=== PATIENT | male | born 1950 | race Caucasian/White ===

== ENCOUNTER 2023-01-27 11:19 | Inpatient (IN) | payer MEDICARE, OTHER ==
[~2023-01-27] VITALS: Ht 177.8 cm; Wt 59.0 kg
[2023-01-27] MEDS ORDERED: HYDROCODONE/APAP 5MG-325MG TAB PO ONE (11:45)
[2023-01-27] MEDS: Morphine 4mg INJECTION 4 MG/ML INJ IV PRN ×3 (15:15→23:51)
[2023-01-27] MEDS: ONDANSETRON HCL INJ 2MG/ML 2ML 2 MG/ML VIAL IV PRN ×2 (15:16→23:51)
[2023-01-27 15:29] LABS: BASOPHILS # (AUTO) 0.1 (0.0-0.1); BASOPHILS % 0.5 % (0.0-1.0); EOSINOPHILS # (AUTO) 0.1 (0.0-0.4); EOSINOPHILS % 0.6 % (0.0-6.0); LYMPHOCYTES # (AUTO) 1.4 (1.0-3.2); LYMPHOCYTES % 9.1 % (18.0-39.1); MEAN CORPUSCULAR HEMOGLOBIN 28.8 pg (28-32); MEAN CORPUSCULAR HGB CONC 32.6 g/dL (31-35); MEAN CORPUSCULAR VOLUME 88.3 fL (81-99); MONOCYTES # (AUTO) 0.9 (0.2-0.8); MONOCYTES % 5.6 % (4.4-11.3); NEUTROPHILS # (AUTO) 13.2 (2.1-6.9); NEUTROPHILS % 83.8 % (38.7-80.0); PLATELET COUNT 253 x10e3/uL (140-360); RED BLOOD COUNT 5.21 x10e6/uL (4.3-5.7); RED CELL DISTRIBUTION WIDTH 13.4 % (11.7-14.4)
[2023-01-27 15:44] LABS: ALBUMIN 4.2 g/dL (3.5-5.0); ALBUMIN/GLOBULIN RATIO 1.6 (0.8-2.0); ANION GAP 15.4 mmol/L (8-16); CALCIUM 9.3 mg/dL (8.4-10.2); CREATININE, SERUM 0.91 mg/dL (0.72-1.25); POTASSIUM 4.4 mmol/L (3.5-5.1)
[2023-01-27 15:57] LABS: PROTHROMBIN TIME 13.7 seconds (11.9-14.5)
[2023-01-27 15:58] LABS: PARTIAL THROMBOPLASTIN TIME 31.9 seconds (23.8-35.5)
[2023-01-27] MEDS: SODIUM CHLORIDE 0.9% 1000ML 1,000 ML IV SCH ×2 (16:14→22:17)
[2023-01-27 19:16] VITALS: BP 127/91
[2023-01-27] MEDS ORDERED: DILTIAZEM HCL 5 MG/ML 5 ML VIAL IV ONE (19:58)
[2023-01-27 20:00] VITALS: BP 151/89
[2023-01-27] MEDS: METOPROLOL TARTRATE INJ 1 MG/ML VIAL IV PRN (20:01)
[2023-01-27 22:01] VITALS: BP 151/89
[2023-01-28] VITALS (10 sets, daily range): BP systolic 116–155; BP diastolic 73–91
[2023-01-28] MEDS: SODIUM CHLORIDE 0.9% 1000ML 1,000 ML IV SCH ×5 (04:53→23:00)
[2023-01-28] MEDS: ONDANSETRON HCL INJ 2MG/ML 2ML 2 MG/ML VIAL IV PRN (06:41)
[2023-01-28] MEDS: Morphine 4mg INJECTION 4 MG/ML INJ IV PRN (06:41)
[2023-01-28 06:52] LABS: BASOPHILS # (AUTO) 0.1 (0.0-0.1); BASOPHILS % 0.7 % (0.0-1.0); EOSINOPHILS # (AUTO) 0.3 (0.0-0.4); HEMATOCRIT 36.5 % (38.2-49.6); HEMOGLOBIN 12.6 g/dL (14.0-18.0); LYMPHOCYTES # (AUTO) 1.6 (1.0-3.2); LYMPHOCYTES % 13.8 % (18.0-39.1); MEAN CORPUSCULAR HEMOGLOBIN 31.3 pg (28-32); MEAN CORPUSCULAR HGB CONC 34.5 g/dL (31-35); MEAN CORPUSCULAR VOLUME 90.6 fL (81-99); MONOCYTES # (AUTO) 1.1 (0.2-0.8); MONOCYTES % 9.7 % (4.4-11.3); NEUTROPHILS # (AUTO) 8.1 (2.1-6.9); NEUTROPHILS % 72.4 % (38.7-80.0); PLATELET COUNT 154 x10e3/uL (140-360); RED BLOOD COUNT 4.03 x10e6/uL (4.3-5.7); RED CELL DISTRIBUTION WIDTH 14.6 % (11.7-14.4)
[2023-01-28 07:15] LABS: ALBUMIN 3.3 g/dL (3.5-5.0); ALBUMIN/GLOBULIN RATIO 1.7 (0.8-2.0); ANION GAP 11.5 mmol/L (8-16); CALCIUM 8.6 mg/dL (8.4-10.2); CREATININE, SERUM 0.84 mg/dL (0.72-1.25); POTASSIUM 3.5 mmol/L (3.5-5.1)
[2023-01-28] MEDS ORDERED: SUGAMMADEX SODIUM 200 MG/2 ML VIAL IV ONE (10:49)
[2023-01-28] MEDS ORDERED: ACETAMINOPHEN 1000 MG/100 ML 100 ML IV ONE (10:50)
[2023-01-28] MEDS ORDERED: Vancomycin IV 1,000 MG ONE (11:14)
[2023-01-28] MEDS ORDERED: SODIUM CHLORIDE 0.9% 500ML 500 ML ONE (11:14)
[2023-01-28] MEDS ORDERED: TRANEXAMIC ACID 20 ML ONE (11:14)
[2023-01-28] MEDS ORDERED: BUPIVACAINE 0.25% 30ML SDV ONE (11:27)
[2023-01-28] MEDS ORDERED: FENTANYL CITRATE/PF 100MCG/2 ML INJ ONE ×2 (11:27→11:59)
[2023-01-28] MEDS ORDERED: MIDAZOLAM HCL 2 MG/2 ML VIAL ONE (11:27)
[2023-01-28] MEDS ORDERED: SODIUM CHLORIDE 0.9% 250ML 250 ML IV ONE (12:00)
[2023-01-28] MEDS ORDERED: ROPIVACAINE 246.25 MG, EPINEPHRINE HCL 1:1000 1ML 0.5 MG, CLONIDINE HCL 0.08 MG, KETORO... IV ONE ×5 (12:00)
[2023-01-28] MEDS ORDERED: DIPHENHYDRAMINE HCL INJ 50 MG/ML VIAL IV PRN (13:00)
[2023-01-28] MEDS ORDERED: HYDROCODONE/APAP 5MG-325MG TAB PO PRN (13:00)
[2023-01-28] MEDS ORDERED: ACETAMINOPHEN 650 MG SUPP PR PRN (13:00)
[2023-01-28] MEDS ORDERED: DOCUSATE SODIUM 100 MG CAP PO PRN (13:00)
[2023-01-28] MEDS ORDERED: ONDANSETRON HCL INJ 2MG/ML 2ML 2 MG/ML VIAL IV PRN (13:00)
[2023-01-28] MEDS ORDERED: POVIDONE IODINE 0.05% 0.05 % ML PO ONE (13:48)
[2023-01-28] MEDS ORDERED: EPHEDRINE SULFATE INJ 50 MG/ML VIAL ONE (13:48)
[2023-01-28] MEDS ORDERED: LIDOCAINE HCL 2% LOCAL INJ 5 ML SDV VIAL INJ ONE (13:48)
[2023-01-28] MEDS ORDERED: PROPOFOL IV EMULSION 10 MG/ML 20 ML VIAL ONE (13:48)
[2023-01-28] MEDS ORDERED: ROCURONIUM BROMIDE 10 MG/ML 5ML VIAL IV ONE (13:48)
[2023-01-28] MEDS ORDERED: DEXAMETHASONE SOD PHOS INJ 4 MG/ML SDV ONE (13:48)
[2023-01-28] MEDS ORDERED: SEVOFLURANE INHAL SOLN 250 ML PEN BTL ONE (13:48)
[2023-01-28] MEDS ORDERED: ONDANSETRON HCL INJ 2MG/ML 2ML 2 MG/ML VIAL ONE (13:48)
[2023-01-28] MEDS: ASPIRIN 325 MG TAB PO SCH (17:19)
[2023-01-28] MEDS: CELECOXIB 200 MG CAP PO SCH (17:19)
[2023-01-28] MEDS: ZOLPIDEM TARTRATE 5 MG TAB PO PRN (22:26)
[2023-01-28] MEDS: HYDROCODONE/APAP 7.5MG-325MG 1 EA TAB PO PRN (22:26)
[2023-01-28] MEDS: METOPROLOL TARTRATE INJ 1 MG/ML VIAL IV PRN (22:40)
[2023-01-29] VITALS (8 sets, daily range): BP systolic 104–169; BP diastolic 63–96
[2023-01-29] MEDS: SODIUM CHLORIDE 0.9% 1000ML 1,000 ML IV SCH ×3 (04:42→19:00)
[2023-01-29 07:21] LABS: HEMATOCRIT 33.5 % (38.2-49.6); HEMOGLOBIN 10.8 g/dL (14.0-18.0)
[2023-01-29] MEDS: ASPIRIN 325 MG TAB PO SCH ×2 (08:45→17:18)
[2023-01-29] MEDS: CELECOXIB 200 MG CAP PO SCH ×2 (08:45→17:18)
[2023-01-29] MEDS ORDERED: ACETAMINOPHEN 1000 MG/100 ML IV PRN (13:00)
[2023-01-29] MEDS: METOPROLOL TARTRATE 25 MG TAB PO SCH (17:18)
[2023-01-29] MEDS: HYDROCODONE/APAP 7.5MG-325MG 1 EA TAB PO PRN (22:15)
[2023-01-29] MEDS: ZOLPIDEM TARTRATE 5 MG TAB PO PRN (22:15)
[2023-01-29] MEDS ORDERED: MAGNESIUM/ALUMINUM/SIMETHICONE 30 ML UDC PO PRN (22:15)
[2023-01-29] MEDS ORDERED: FAMOTIDINE 20 MG TAB PO ONE (22:15)
[2023-01-30] VITALS (8 sets, daily range): BP systolic 122–148; BP diastolic 66–78
[2023-01-30] MEDS: SODIUM CHLORIDE 0.9% 1000ML 1,000 ML IV SCH ×2 (04:06→15:00)
[2023-01-30] MEDS: CELECOXIB 200 MG CAP PO SCH ×2 (08:00→17:25)
[2023-01-30] MEDS: FAMOTIDINE 20 MG TAB PO SCH ×2 (08:01→17:34)
[2023-01-30] MEDS: METOPROLOL TARTRATE 25 MG TAB PO SCH ×2 (08:01→17:25)
[2023-01-30] MEDS: ASPIRIN 325 MG TAB PO SCH ×2 (08:01→17:25)
[2023-01-30 09:04] LABS: BASOPHILS # (AUTO) 0.1 (0.0-0.1); BASOPHILS % 0.6 % (0.0-1.0); EOSINOPHILS % 9.2 % (0.0-6.0); HEMATOCRIT 37.2 % (38.2-49.6); HEMOGLOBIN 12.1 g/dL (14.0-18.0); LYMPHOCYTES # (AUTO) 1.3 (1.0-3.2); MEAN CORPUSCULAR HEMOGLOBIN 28.7 pg (28-32); MEAN CORPUSCULAR HGB CONC 32.5 g/dL (31-35); MEAN CORPUSCULAR VOLUME 88.4 fL (81-99); MONOCYTES # (AUTO) 0.6 (0.2-0.8); MONOCYTES % 5.4 % (4.4-11.3); NEUTROPHILS # (AUTO) 7.3 (2.1-6.9); NEUTROPHILS % 71.4 % (38.7-80.0); PLATELET COUNT 175 x10e3/uL (140-360); RED BLOOD COUNT 4.21 x10e6/uL (4.3-5.7); RED CELL DISTRIBUTION WIDTH 13.8 % (11.7-14.4)
[2023-01-30 09:20] LABS: ANION GAP 12.7 mmol/L (8-16); CALCIUM 8.6 mg/dL (8.4-10.2); CREATININE, SERUM 0.78 mg/dL (0.72-1.25); POTASSIUM 3.7 mmol/L (3.5-5.1)
[2023-01-30] MEDS: APIXABAN 5 MG TABLET PO SCH (17:26)
[2023-01-30] MEDS: HYDROCODONE/APAP 7.5MG-325MG 1 EA TAB PO PRN (22:42)
[2023-01-30] MEDS: ZOLPIDEM TARTRATE 5 MG TAB PO PRN (22:42)
[2023-01-31] VITALS (9 sets, daily range): BP systolic 112–148; BP diastolic 70–86
[2023-01-31 06:14] LABS: BASOPHILS # (AUTO) 0.1 (0.0-0.1); BASOPHILS % 1.3 % (0.0-1.0); EOSINOPHILS % 11.5 % (0.0-6.0); HEMATOCRIT 30.2 % (38.2-49.6); HEMOGLOBIN 10.2 g/dL (14.0-18.0); LYMPHOCYTES # (AUTO) 1.9 (1.0-3.2); LYMPHOCYTES % 22.1 % (18.0-39.1); MEAN CORPUSCULAR HEMOGLOBIN 30.5 pg (28-32); MEAN CORPUSCULAR HGB CONC 33.8 g/dL (31-35); MEAN CORPUSCULAR VOLUME 90.4 fL (81-99); MONOCYTES # (AUTO) 0.9 (0.2-0.8); MONOCYTES % 10.2 % (4.4-11.3); NEUTROPHILS # (AUTO) 4.6 (2.1-6.9); NEUTROPHILS % 54.3 % (38.7-80.0); PLATELET COUNT 157 x10e3/uL (140-360); RED BLOOD COUNT 3.34 x10e6/uL (4.3-5.7)
[2023-01-31 06:35] LABS: ANION GAP 9.9 mmol/L (8-16); CALCIUM 8.5 mg/dL (8.4-10.2); CREATININE, SERUM 0.77 mg/dL (0.72-1.25); POTASSIUM 3.9 mmol/L (3.5-5.1)
[2023-01-31] MEDS: FAMOTIDINE 20 MG TAB PO SCH ×2 (08:21→16:40)
[2023-01-31] MEDS: CELECOXIB 200 MG CAP PO SCH ×2 (08:21→16:41)
[2023-01-31] MEDS: METOPROLOL TARTRATE 25 MG TAB PO SCH ×2 (08:21→16:41)
[2023-01-31] MEDS: HYDROCODONE/APAP 7.5MG-325MG 1 EA TAB PO PRN (08:22)
[2023-01-31] MEDS: ASPIRIN 325 MG TAB PO SCH ×2 (08:22→16:41)
[2023-01-31] MEDS: APIXABAN 5 MG TABLET PO SCH ×2 (08:22→16:41)
[2023-01-31] MEDS ORDERED: Morphine 4mg INJECTION 4 MG/ML INJ IV PRN (11:30)
[2023-01-31] MEDS ORDERED: ONDANSETRON HCL 4 MG ORAL DISINTEGRATING TAB PO PRN (11:30)
[2023-01-31] MEDS: ZOLPIDEM TARTRATE 5 MG TAB PO PRN (22:22)
[2023-02-01 00:20] VITALS: BP 105/59
[2023-02-01 04:41] VITALS: BP 128/71
[2023-02-01 08:27] VITALS: BP 143/85
[2023-02-01 09:00] VITALS: BP 143/85
[2023-02-01] MEDS: APIXABAN 5 MG TABLET PO SCH ×2 (09:34→16:30)
[2023-02-01] MEDS: CELECOXIB 200 MG CAP PO SCH ×2 (09:36→16:30)
[2023-02-01] MEDS: ASPIRIN 325 MG TAB PO SCH ×2 (09:36→16:29)
[2023-02-01] MEDS: METOPROLOL TARTRATE 25 MG TAB PO SCH ×2 (09:37→16:29)
[2023-02-01] MEDS: FAMOTIDINE 20 MG TAB PO SCH ×2 (09:40→16:30)
[2023-02-01 12:12] VITALS: BP 148/82
[2023-02-01 16:00] VITALS: BP 126/73
[2023-02-01] MEDS: HYDROCODONE/APAP 7.5MG-325MG 1 EA TAB PO PRN (16:30)
== END 2023-02-01 17:05 | disposition home or self-care (01) | DRG 522 ==
LOC: ER 11:26 → ERHOLD 13:53 → MED/SURG2 17:11
PROVIDERS: ADMIT Internal Medicine; ATTEND Internal Medicine
PROC: 0SRB04Z Replacement of Left Hip Joint with Ceramic on Polyethylene Synthetic Substitute, Open Approach (ICD-10-PCS; principal; 2023-01-28 11:54)
PROC: 0HBRXZZ Excision of Toe Nail, External Approach (ICD-10-PCS; 2023-01-30)
DX: S72.002A Fracture of unspecified part of neck of left femur, initial encounter for closed fracture (principal); V03.90XA Pedestrian on foot injured in collision with car, pick-up truck or van, unspecified whether traffic or nontraffic accident, initial encounter; I10 Essential (primary) hypertension; L60.0 Ingrowing nail; I48.0 Paroxysmal atrial fibrillation; R00.1 Bradycardia, unspecified; Z20.822 Contact with and (suspected) exposure to COVID-19
CPT/HCPCS: 0223U; 36415; 71045; 72170; 80048; 80053; 85014; 85018; 85025; 85610; 85730; 86850; 86900; 86920; 93005; 93306; 94799; 96361; 99285; C1713; C1776; J0171; J0690; J1100; J1885; J2001; J2250; J2270; J2405; J2795; J3370; J7030; J7040

== ENCOUNTER 2023-03-22 15:50 | Emergency (ER) | payer MEDICARE ==
[~2023-03-22] VITALS: Ht 177.8 cm; Wt 59.0 kg
[2023-03-22] MEDS ORDERED: FENTANYL CITRATE/PF 100MCG/2 ML INJ IV ONE (17:15)
[2023-03-22] MEDS ORDERED: KETAMINE HCL INJ 50 MG/ML 10 ML VIAL ONE (17:56)
[2023-03-22] MEDS ORDERED: KETAMINE 50MG/5ML SYR IV ONE (18:30)
[2023-03-22 19:44] VITALS: BP 152/80; PULSE 60; RESP 13; TEMP 98.4; O2SAT 100
== END 2023-03-22 20:36 | disposition home or self-care (01) ==
LOC: ER 16:00
DX: T84.021A Dislocation of internal left hip prosthesis, initial encounter (principal); W18.11XA Fall from or off toilet without subsequent striking against object, initial encounter; Y92.091 Bathroom in other non-institutional residence as the place of occurrence of the external cause; Z96.642 Presence of left artificial hip joint
CPT/HCPCS: 73501; 73502; 99284; J3010